=== PATIENT | female | born 1965 | race Caucasian/White ===

== ENCOUNTER 2019-08-30 03:11 | Emergency (ER) | payer OTHER ==
[~2019-08-30] VITALS: Ht 162.6 cm; Wt 65.8 kg
[2019-08-30] MEDS ORDERED: PREDNISONE20 MG PO (03:30)
[2019-08-30] MEDS ORDERED: TIROSINT125 MCG PO (03:31)
[2019-08-30] MEDS ORDERED: CALCITRATE200 MG PO (03:32)
== END 2019-08-30 03:57 | disposition home or self-care (01) ==
LOC: ED 03:11
DX: L50.9 Urticaria, unspecified (principal)
CPT/HCPCS: 99282; J7512